=== PATIENT | female | born 1975 | race African-American/Black ===

== ENCOUNTER 2021-09-03 12:20 | Outpatient (CLI) | payer BC, SELFPAY ==
[2021-09-03 13:20] LABS: Anion Gap 7 mmol/L (8-16); Blood Urea Nitrogen 9 mg/dL (7-17); Carbon Dioxide 27 mmol/L (22-30); Chloride 104 mmol/L (98-107); Estimated Glomerular Filt Rate > 60; Glucose 85 mg/dL (65-110); Sodium 138 mmol/L (137-145)
[2021-09-03 13:28] LABS: Free T4 Free Thyroxine 0.86 ng/mL (0.78-2.19)
[2021-09-06 03:42] LABS: Prolactin 11.9 ng/mL (***)
== END 2021-09-03 12:21 | disposition home or self-care (01) ==
LOC: ANHWCLAB 12:29
PROVIDERS: Referring Provider Internal Medicine Endocrinology, Diabetes & Metabolism; Visit Provider Internal Medicine Endocrinology, Diabetes & Metabolism
DX: E22.1 Hyperprolactinemia (principal); I10 Essential (primary) hypertension
CPT/HCPCS: 36415; 80048; 84146; 84439; 84443